=== PATIENT | female | born 1945 | race Caucasian/White ===

== ENCOUNTER 2019-08-10 14:34 | Emergency (ER) | payer BC, MEDICARE, OTHER ==
[~2019-08-10] VITALS: Ht 167.6 cm; Wt 84.4 kg
[~2019-08-10 14:34] MED LIST: Z.0.ACYCLOVIR400 MG PO; Z.0.CRESTOR5 MG; Z.0.TOPROL XL50 MG; Z.0.ZOLOFT50 MG
--- OUTSIDE RECORDS SUMMARY | 2019-08-10 14:38 | XMS REPORT | Summary of Care ---
Author Author [facility] Organization [facility] Address Unknown Phone Unavailable Care Team Providers Care Public Address Systems Mechanic Name Role Phone Willard Mixon MD PCP Reason for Visit * Reason Comments Eye Problem Encounter Details Care Team Description Date Type Department Maykel Dey MD [address] [place] [address] Eye Problem 07/22/2019 Office Visit [facility] Ophthalmology [address] [place] [phone] Allergies Comments Active Allergy Reactions Severity Noted Date Redness and itchy Brimonidine High 06/21/2015 Tartrate-Timolol Rash Sulfa Antibiotics 11/17/2015 documented as of this encounter (statuses as of 07/22/2019) Medications End Date Status Medication Sig Dispensed Refills Start Date Active sertraline (ZOLOFT) 50 MG Take 50 mg by 0 tablet mouth daily. Active rosuvastatin (CRESTOR) 10 Take 10 mg by 0 MG tablet mouth daily. Active metoprolol (TOPROL XL) Take 100 mg 0 100 MG XL tablet by mouth daily. Active Melatonin 1 MG TABS Take by 0 mouth. Active Fexofenadine HCl (MIS Take by 0 ALLERGY OR) mouth. Active Ascorbic Acid (VITAMIN C) Take 1,000 mg 0 1000 MG TABS by mouth. Active B Complex Vitamins Take 1 tablet 0 (VITAMIN-B COMPLEX) TABS by mouth. Active Biotin 1000 MCG TABS Take 1,000 0 mcg by mouth. Active calcium-vitamin D Take 1 tablet 0 (CALCIUM 500/D) 500-200 by mouth. MG-UNIT per tablet Active timolol maleate Place 1 Drop 30 mL 3 10/02/201 (TIMOPTIC) 0.5 % into the left 8 ophthalmic solution eye two times daily. Active acyclovir (ZOVIRAX) 400 TAKE 1 TAB BY 270 Tab 3 MG tablet MOUTH 3 TIMES 9 DAILY. Active LOTEMAX 0.5 % ophthalmic INSTILL 1 15 mL 3 suspension DROP INTO THE 9 LEFT EYE FOUR TIMES DAILY. Active doxycycline (VIBRAMYCIN) Take 1 Cap by 30 Cap 0 50 MG capsule mouth two 9 times daily. 07/22/[address] 0.25 1 Tube 1 (LOTEMAX) 0.5 % Inches into 8 ophthalmic ointment the left eye at bedtime. 07/22/2019 Discontinued fluticasone (FLONASE) 50 Si spray 16 g 1 MCG/ACT nasal spray left nose 2 8 times a day 07/22/2019 Discontinued Ganciclovir (ZIRGAN) 0.15 Apply 1 Inch 1 Tube 3 % GEL to eye 5 8 times daily. 07/22/2019 Discontinued dorzolamide-timolol 1 Drop. 0 (COSOPT) 22.3-6.8 MG/ML ophthalmic solution 07/22/2019 Discontinued clindamycin (CLEOCIN) 150 Take 1 Cap by 21 Cap 0 MG capsule mouth 3 times 8 daily. 07/22/2019 Discontinued bepotastine (BEPREVE) 1.5 Place 1 Drop 10 mL 12 % ophthalmic solution into both 8 eyes 2 times daily as needed (itching / allergy). 07/22/2019 Discontinued moxifloxacin (VIGAMOX) Place 1 Drop 1 Bottle 0 0.5 % ophthalmic solution into the 9 right eye four times daily. 07/22/2019 Discontinued PAZEO 0.7 % SOLN Place 1 Drop 1 Bottle 6 into both 9 eyes daily as needed for Other (itching). 07/22/2019 Discontinued gentamicin (GARAMYCIN) Place 1 Drop 5 mL 3 0.3 % ophthalmic solution into the left 9 eye four times daily. 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 documented as of this encounter Last Filed Vital Signs Not on filedocumented in this encounter Progress Notes * Maykel Dey MD - 07/22/2019 1:00 PM CDT Exam: 1-2+ eyelid erythema. 3+ MGD of ARLENE and LLL. No chalazia 1+ conj injection. K PKP graft clear OS No reflux w/ NL sac compression. No purulence seen on conj. Assessment: MGD OS Plan: wc lotemax lorelei to eyelids qHS Doxy 50 bid x 2 weeks. F/u 1 mo. documented in this encounter Plan of Treatment Care Team Description Date Type Specialty Marina Trinidad, OD [address] [place] [address] [phone] 07/29/2019 Office Visit Ophthalmology Health Maintenance Due Date Last Done Comments COLON CANCER SCREENIN1947 COLONOSCOPY MAMMOGRAM ANNUAL 1945 MEDICARE AWV 1945 TETANUS SHOT (ADULT) 1962 HEPATITIS C SCREENING 1965 FALL SCREEN 2012 PNEUMOVAX >=65 (PPSV23) 2012 PREVNAR >=65 (PCV13) 2012 FLU VACCINE > 6 MONTHS 06/04/2019 OSTEOPOROSIS SCREENING Completed 08/05/2017, 06/18/2017, 08/03/2016 documented as of this encounter Implants Device Identifier Shelf Expiration Date Model / Serial / Lot Implanted Type Area Manufactur er 07/01/2012 / 12-0644-100 / Cornea Tissue - [id number] Left: Cornea Lions Eye Implanted: Qty: 1 on 06/24/2012 at [facility] [place] [facility] [place] 01/22/2018 23.5 / [id number] / [id number] - [id number] Left: Eye CHERYL Implanted: Qty: 1 on 11/24/2013 by Genai Rivers MD at [facility] [place] documented as of this encounter Results Not on filedocumented in this encounter Visit Diagnoses Diagnosis 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
--- OUTSIDE RECORDS SUMMARY | 2019-08-10 14:38 | XMS REPORT | Summary of Care ---
Author Author [facility] Organization [facility] Address Unknown Phone Unavailable Care Team Providers Care Medical Technologist Name Role Phone Willard Mixon MD PCP Reason for Visit * Reason Comments Eye Problem Encounter Details Care Team Description Date Type Department Genia Rivers MD [address] [place] [address] Eye Problem 06/15/2019 Office Visit Department of Ophthalmology [address] [place] [phone] Allergies Comments Active Allergy Reactions Severity Noted Date Redness and itchy Brimonidine High 06/21/2015 Tartrate-Timolol Rash Sulfa Antibiotics 11/17/2015 documented as of this encounter (statuses as of 06/15/2019) Medications End Date Status Medication Sig Dispensed [...] Take by 0 ALLERGY OR) mouth. Active Loteprednol Etabonate Place 0.25 1 Tube 1 (LOTEMAX) 0.5 % Inches into 8 ophthalmic ointment the left eye at bedtime. Active fluticasone (FLONASE) 50 Si spray 16 g 1 MCG/ACT nasal spray left nose 2 8 times a day Active Ganciclovir (ZIRGAN) 0.15 Apply 1 Inch 1 Tube 3 % GEL to eye 5 8 times daily. Active Ascorbic Acid (VITAMIN C) Take 1,000 mg 0 1000 MG TABS by mouth. Active B Complex Vitamins Take 1 tablet 0 (VITAMIN-B COMPLEX) TABS by mouth. Active Biotin 1000 MCG TABS Take 1,000 0 mcg by mouth. Active calcium-vitamin D Take 1 tablet 0 (CALCIUM 500/D) 500-200 by mouth. MG-UNIT per tablet Active dorzolamide-timolol 1 Drop. 0 (COSOPT) 22.3-6.8 MG/ML ophthalmic solution Active clindamycin (CLEOCIN) 150 Take 1 Cap by 21 Cap 0 MG capsule mouth 3 times 8 daily. Active timolol maleate Place 1 Drop 30 mL 3 (TIMOPTIC) 0.5 % into the left 8 ophthalmic solution eye two times daily. Active bepotastine (BEPREVE) 1.5 Place 1 Drop 10 mL 12 % ophthalmic solution into both 8 eyes 2 times daily as needed (itching / allergy). Active moxifloxacin (VIGAMOX) Place 1 Drop 1 Bottle 0 0.5 % ophthalmic solution into the 9 right eye four times daily. Active PAZEO 0.7 % SOLN Place 1 Drop 1 Bottle 6 into both 9 eyes daily as needed for Other (itching). Active acyclovir (ZOVIRAX) 400 TAKE 1 TAB BY 270 Tab 3 MG tablet MOUTH 3 TIMES 9 DAILY. Active LOTEMAX 0.5 % ophthalmic INSTILL 1 15 mL 3 suspension DROP INTO THE 9 LEFT EYE FOUR TIMES DAILY. 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 documented as of this encounter (statuses as of 06/15/2019) Social History Date Tobacco Use Types Packs/Day [...] filedocumented in this encounter Progress Notes * Genia Rivers MD - 06/15/2019 4:15 PM CDT Minor trauma OS with sl loose epithelium OS No HSV activity No stromal infiltrate Plan: Add gentamicin TID Return in a few days documented in this encounter Plan of Treatment Care Team Description Date Type Specialty Genia Rivers MD [address] [place] [address] [phone] 07/22/2019 Office Visit Ophthalmology Health Maintenance Due Date [...] 07/01/2012 / 12-0644-100 / Cornea Tissue - [id number] Left: Cornea Lions Eye Implanted: Qty: 1 on 06/24/2012 at [facility] 01/22/2018 23.5 / [id number] / [id number] - [id number] Left: Eye CHERYL Implanted: Qty: 1 on 11/24/2013 by Genia Rivers MD at [facility] documented as of this encounter Results Not on filedocumented in this encounter Visit Diagnoses Diagnosis Keratitis - Primary Unspecified keratitis documented in this encounter Insurance Type Payer Benefit Subscriber ID Effective Phone Address Plan / Dates Group Medicare [employer] TRS-CARE xxxxxxxxx 2016-P [address] resent [id number] [place] [address] LUNA alejandre (Home) [place] [address] documented as of this encounter
--- OUTSIDE RECORDS SUMMARY | 2019-08-10 14:38 | XMS REPORT | Summary of Care ---
Author Author [facility] Organization [facility] Address Unknown Phone Unavailable Care Team Providers Care Magnetic Tester Name Role Phone Willard Mixon MD PCP Reason for Visit * Reason Comments Blurred Vision Encounter Details Care Team Description Date Type Department Genia Rivers MD [address] [place] [address] Blurred Vision 07/08/2019 Office Visit [facility] Ophthalmology [address] [place] [phone] Allergies Comments Active Allergy Reactions Severity Noted Date Redness and itchy Brimonidine High 06/21/2015 Tartrate-Timolol Rash Sulfa Antibiotics 11/17/2015 documented as of this encounter (statuses as of 07/08/2019) Medications End Date Status Medication Sig Dispensed [...] 9 LEFT EYE FOUR TIMES DAILY. Active gentamicin (GARAMYCIN) Place 1 Drop 5 mL 3 0.3 % ophthalmic solution into the left 9 eye four times daily. 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 documented as of this encounter (statuses as of 07/08/2019) Social History Date Tobacco Use Types Packs/Day [...] Progress Notes * Genia Rivers MD - 07/08/2019 8:15 AM CDT MGD OS>>OD WC 2 minutes HS Same meds After 2 weeks (when she is done taking care of grand children) taper ACV and lot emax by one drop documented in this encounter Plan of Treatment Care Team Description Date Type Specialty Genia Rivers MD [address] [place] [address] [phone] 07/22/2019 Office Visit Ophthalmology Marina Trinidad, ZACK [address] [place] [address] [phone] 07/29/2019 Office Visit Ophthalmology Health Maintenance Due [...] 07/01/2012 / 12-0644-100 / Cornea Tissue - [id number] Left: Cornea Lions Eye Implanted: Qty: 1 on 06/24/2012 at [facility] 01/22/2018 23.5 / [id number] / Sn60wf - [id number] Left: Eye CHERYL Implanted: Qty: 1 on 11/24/2013 by Genia Rivers MD at [facility] [place] documented as of this encounter Results Not on filedocumented in this encounter Visit Diagnoses Diagnosis Post corneal transplant - Primary Cornea replaced by transplant documented in this encounter Insurance Type Payer Benefit Subscriber ID Effective Phone Address Plan / Dates Group Medicare [employer] TRS-CARE xxxxxxxxx 2016-P [address] resent [address] [place] [address] documented as of this encounter
--- OUTSIDE RECORDS SUMMARY | 2019-08-10 14:38 | XMS REPORT | Summary of Care ---
Author Author [facility] Organization [facility] Address Unknown Phone Unavailable Care Team Providers Care Vacuum Spindle Sander Name Role Phone Willard Mixon MD PCP Reason for Visit * Reason Comments Eye Irritation Encounter Details Care Team Description Date Type Department Genia Rivers MD 1974 [place], [place] [id number] Eye Irritation 06/17/2019 Office Visit Department of Ophthalmology [address] [place] [phone] Allergies Comments Active Allergy Reactions Severity Noted Date Redness and itchy Brimonidine High 06/21/2015 Tartrate-Timolol Rash Sulfa Antibiotics 11/17/2015 documented as of this encounter (statuses as of 06/17/2019) Medications End Date Status Medication Sig Dispensed [...] gentamicin (GARAMYCIN) Place 1 Drop 5 mL 2 0.3 % ophthalmic solution into the left 9 eye 3 times daily. 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 documented as of this encounter (statuses as of 06/17/2019) Social History Date Tobacco Use Types Packs/Day [...] Progress Notes * Genia Rivers MD - 06/17/2019 8:30 AM CDT Doing well epith is not adherent Plan: Same meds for the weekend, On Saturday DC gentamicin and reduce lotemax and ACV to usual dose BID documented in this encounter Plan of Treatment Care Team Description Date Type Specialty Genia Rivers MD [address] [place] [address] [phone] 07/22/2019 Office Visit Ophthalmology Health Maintenance Due [...] 07/01/2012 / 12-0644-100 / Cornea Tissue - [id number] Left: Cornea Lions Eye Implanted: Qty: 1 on 06/24/2012 at [facility] [place] [facility] 01/22/2018 23.5 / [id number] / [id number] - [id number] Left: Eye CHERYL Implanted: Qty: 1 on 11/24/2013 by Genia Rivers MD at [facility] documented as of this encounter Results Not on filedocumented in this encounter Visit Diagnoses Diagnosis Keratitis - Primary Unspecified keratitis documented in this encounter Insurance Type Payer Benefit Subscriber ID Effective Phone Address Plan / Dates Group Medicare [employer] TRS-CARE xxxxxxxxx 2016-P [address] resent [address] [place] [address] documented as of this encounter
--- OUTSIDE RECORDS SUMMARY | 2019-08-10 14:38 | XMS REPORT | Summary of Care ---
Author Author [facility] Organization [facility] Address Unknown Phone Unavailable Care Team Providers Care Pump Rebuilder Name Role Phone Willard Mixon MD PCP Reason for Visit * Reason Comments Eye Problem Encounter Details Care Team Description Date Type Department Genia Rivers MD [address] [place] [address] Eye Problem 06/29/2019 Office Visit [facility] Ophthalmology [address] [place] [phone] Allergies Comments Active Allergy Reactions Severity Noted Date Redness and itchy Brimonidine High 06/21/2015 Tartrate-Timolol Rash Sulfa Antibiotics 11/17/2015 documented as of this encounter (statuses as of 06/29/2019) Medications End Date Status Medication Sig Dispensed [...] 0.15 Apply 1 Inch 1 Tube 3 03/24/ % GEL to eye 5 8 times [...] as of this encounter (statuses as of 06/29/2019) Active Problems Problem Noted Date Angular blepharoconjunctivitis of left eye 08/15/2016 Blepharitis of both eyes 05/29/2016 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 Post-operative state 12/14/2015 Nasolacrimal duct obstruction 11/01/2015 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 Pseudophakia of left eye 04/08/2015 Incipient senile cataract 04/08/2015 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 documented as of this encounter (statuses as of 06/29/2019) Social History Date Tobacco Use Types Packs/Day [...] Signs Not on filedocumented in this encounter Patient Instructions * Patient Instructions* Genia Rivers MD - 06/29/2019 4:00 PM CDT Acyclovir 3 x per day Gentamicin once a day lotemax 3 x per day documented in this encounter Progress Notes * Genia Rivers MD - 06/29/2019 4:00 PM CDT Possible ADV with persistent inflammation Could still be shedding virus Plan: Increase lotemax to tid for a few weeks documented in this encounter Plan of Treatment Care Team Description Date Type Specialty Genia Rivers MD [address] [place] [address] [phone] 07/22/2019 Office Visit Ophthalmology Health Maintenance Due [...] 07/01/2012 / 12-0644-100 / Cornea Tissue - [id number] Left: Cornea Lions Eye Implanted: Qty: 1 on 06/24/2012 at [facility] 01/22/2018 23.5 / [id number] / [id number] - [id number] Left: Eye CHERYL Implanted: Qty: 1 on 11/24/2013 by Genia Rivers MD at [facility] [place] documented as of this encounter Results Not on filedocumented in this encounter Visit Diagnoses Diagnosis Conjunctivitis due to adenovirus, left eye - Primary documented in this encounter Insurance Type Payer Benefit Subscriber ID Effective Phone Address Plan / Dates Group Medicare [employer] TRS-CARE xxxxxxxxx 2016-P [address] resent [address] [place] [address] documented as of this encounter
--- OUTSIDE RECORDS SUMMARY | 2019-08-10 14:38 | XMS REPORT | Summary of Care ---
Author Author [facility] Organization [facility] Address Unknown Phone Unavailable Care Team Providers Care Motorcycle Maker Name Role Phone Willard Mixon MD PCP Reason for Visit * Reason Comments Eye Pain Encounter Details Care Team Description Date Type Department Genia Rivers MD [address] [place] [address] Eye Pain 06/22/2019 Office Visit [facility] Ophthalmology [address] [place] [phone] Allergies Comments Active Allergy Reactions Severity Noted Date Redness and itchy Brimonidine High 06/21/2015 Tartrate-Timolol Rash Sulfa Antibiotics 11/17/2015 documented as of this encounter (statuses as of 06/22/2019) Medications End Date Status Medication Sig Dispensed [...] as of this encounter (statuses as of 06/22/2019) Active Problems Problem Noted Date Angular blepharoconjunctivitis of left eye 08/15/2016 Blepharitis of both eyes 05/29/2016 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 Viral conjunctitivits? Improving now Plan: Continue current therapy for one week then taper by one drop or one pill every week until back to baseline documented in this encounter Plan of Treatment Care Team Description Date Type Specialty Genia Rivers MD [address] [place] [address] [phone] 07/22/2019 Office Visit Ophthalmology Health Maintenance Due [...] 07/01/2012 / 12-0644-100 / Cornea Tissue - [id number] Left: Cornea Lions Eye Implanted: Qty: 1 on 06/24/2012 at [facility] 01/22/2018 23.5 / [id number] / [id number] - [id number] Left: Eye CHERYL Implanted: Qty: 1 on 11/24/2013 by Genia Rivers MD at [facility] [place] documented as of this encounter Results Not on filedocumented in this encounter Visit Diagnoses Diagnosis Acute viral conjunctivitis of left eye - Primary documented in this encounter Insurance Type Payer Benefit Subscriber ID Effective Phone Address Plan / Dates Group Medicare [employer] TRS-[place] xxxxxxxxx 2016-P [address] resent [address] [place] [address] documented as of this encounter
[2019-08-10] MEDS ORDERED: IBUPROFEN 600 MG TAB PO STA (15:18)
[2019-08-10] MEDS ORDERED: IBUPROFEN 200 MG TAB ONE (15:36)
[2019-08-10] MEDS ORDERED: ACETAMINOPHEN 325 MG TAB PO ONE (15:45)
[2019-08-10] MEDS ORDERED: ACETAMINOPHEN 325 MG TAB ONE (15:49)
--- NOTE | 2019-08-10 17:28 | Diagnostic Imaging Report ---
History: Right periauricular and facial pain x1 day. No trauma. Comparison studies: None Technique: Axial images were obtained through the facial region. Coronal and sagittal images reconstructed from the axial data. Dose modulation, iterative reconstruction, and/or weight based adjustment of the mA/kV was utilized to reduce the radiation dose to as low as reasonably achievable. Radiation dose: Total DLP: 1128 mGy*cm. Estimated effective dose: DLP x 0.015 Intravenous contrast: 100 cc of Omnipaque 300. Findings: Evaluation of the soft tissues are limited in the absence of IV contrast. In spite of limitations: Soft tissues: Relatively circumscribed 1.9 x 1.3 x 1.0 cm (SI x AP x TV) mass at the left medial canthus which extends to the left nasolacrimal duct. The left nasolacrimal duct is opacified and mildly expanded. No periauricular or parotid mass identified. Bones: No fractures. No lytic or blastic lesions. Degenerative changes at the right temporomandibular joint with small osteophyte formation along the right mandibular condyle. Orbits: Incidental left lens replacement. See soft tissues, as above. Paranasal sinuses: Scattered nonspecific inflammatory mucosal thickening in the bilateral maxillary sinuses and bilateral middle ethmoid air cells. The remaining sinuses are clear. The bilateral ostiomeatal units, frontoethmoidal recesses and sphenoethmoidal recesses are patent. Bony defects along the medial manjarrez of the bilateral maxillary sinuses may be congenital or be related to prior medial antrostomies. Findings could be correlated for prior sinonasal surgery. Nasal cavity: Mild nonspecific reactive inferior nasal turbinate hypertrophy. Nasal septum is slightly deviated to the patient's right. Dentition: No periapical lucencies. Middle ear and mastoids: Minimal effusion at the right mastoid tip. Bilateral middle ear and remaining mastoid cavities are clear. Included cervical spine: Mild multilevel cervical disc degeneration and multilevel facet arthrosis. IMPRESSION: 1. No periauricular or parotid mass identified. 2. Mild nonspecific mucosal thickening in the bilateral maxillary sinuses and ethmoid air cells. 3. Indeterminate left medial canthal mass which extends to the left nasolacrimal duct which is opacified and mildly widened. Differential includes neoplasm or dacryocystocele. Recommend ENT consultation. Maxillofacial CT or MRI with IV contrast may also further evaluate. Findings and recommendations were discussed with Dr. Dennison at approximately 5:15 PM on 08/10/2019. Signed by: Dr. Jovi Vaughn M.D. on 08/10/2019 5:25 PM
[2019-08-10 17:46] VITALS: BP 157/72
== END 2019-08-10 17:53 | disposition home or self-care (01) ==
LOC: FSED 14:34
DX: R51 Headache (principal); B02.9 Zoster without complications; I10 Essential (primary) hypertension
CPT/HCPCS: 70486; 80053; 85025; 99284

== ENCOUNTER 2021-03-22 15:50 | Outpatient (RCR) | payer MEDICARE | END 2021-04-03 | LOC: PT 15:50 | PROVIDERS: ATTEND Orthopaedic Surgery ==

== ENCOUNTER 2021-11-16 12:58 | Outpatient (RCR) | payer MEDICARE | END 2021-12-04 | LOC: PT 12:58 | PROVIDERS: ATTEND Otolaryngology | DX: H81.10 Benign paroxysmal vertigo, unspecified ear (principal) ==

== ENCOUNTER 2022-01-15 11:07 | Emergency (ER) | payer MEDICARE ==
[~2022-01-15] VITALS: Ht 167.6 cm; Wt 84.4 kg
[2022-01-15] MEDS ORDERED: ACETAMINOPHEN 325 MG TAB PO ONE (13:15)
[2022-01-15] MEDS ORDERED: ULTRAM50 MG PO (14:35)
[2022-01-15] MEDS ORDERED: COLACE100 MG PO (14:35)
== END 2022-01-15 15:00 | disposition home or self-care (01) ==
LOC: ER 11:15
DX: S42.291A Other displaced fracture of upper end of right humerus, initial encounter for closed fracture (principal); S09.90XA Unspecified injury of head, initial encounter; S99.912A Unspecified injury of left ankle, initial encounter; W17.89XA Other fall from one level to another, initial encounter; Y93.A1 Activity, exercise machines primarily for cardiorespiratory conditioning; Y92.098 Other place in other non-institutional residence as the place of occurrence of the external cause; I10 Essential (primary) hypertension; E78.5 Hyperlipidemia, unspecified; F41.9 Anxiety disorder, unspecified; Z94.7 Corneal transplant status
CPT/HCPCS: 70450; 72125; 99284

== ENCOUNTER 2022-09-13 19:09 | Emergency (ER) | payer MEDICARE, OTHER ==
[~2022-09-13] VITALS: Ht 167.6 cm; Wt 84.4 kg
[~2022-09-13 19:09] MED LIST changes: +COLACE100 MG PO; +ULTRAM50 MG PO
== END 2022-09-13 22:44 | disposition home or self-care (01) ==
LOC: ER 19:13
DX: S00.83XA Contusion of other part of head, initial encounter (principal); M25.552 Pain in left hip; W01.198A Fall on same level from slipping, tripping and stumbling with subsequent striking against other object, initial encounter; Y93.01 Activity, walking, marching and hiking; Y92.89 Other specified places as the place of occurrence of the external cause; I10 Essential (primary) hypertension; E78.5 Hyperlipidemia, unspecified; F41.9 Anxiety disorder, unspecified
CPT/HCPCS: 70450; 71045; 72125; 99283

== ENCOUNTER 2024-10-13 14:07 | Emergency (ER) | payer MEDICARE ==
[~2024-10-13] VITALS: Ht 167.6 cm; Wt 84.4 kg
[2024-10-13] MEDS: MAGNESIUM/ALUMINUM/SIMETHICONE 30 ML UDC PO ONE (15:19)
[2024-10-13 16:29] LABS: BASOPHILS # (AUTO) 0.1 (0.0-0.1); BASOPHILS % 0.8 % (0.0-1.0); EOSINOPHILS # (AUTO) 0.1 (0.0-0.4); EOSINOPHILS % 1.5 % (0.0-6.0); HEMATOCRIT 41.6 % (34.2-44.1); HEMOGLOBIN 13.6 g/dL (12.0-16.0); LYMPHOCYTES # (AUTO) 1.3 (1.0-3.2); LYMPHOCYTES % 21.9 % (18.0-39.1); MEAN CORPUSCULAR HEMOGLOBIN 31.5 pg (28-32); MEAN CORPUSCULAR HGB CONC 32.7 g/dL (31-35); MEAN CORPUSCULAR VOLUME 96.3 fL (81-99); MONOCYTES # (AUTO) 0.5 (0.2-0.8); MONOCYTES % 8.1 % (4.4-11.3); NEUTROPHILS % 67.4 % (38.7-80.0); PLATELET COUNT 167 x10e3/uL (140-360); RED BLOOD COUNT 4.32 x10e6/uL (3.6-5.1); RED CELL DISTRIBUTION WIDTH 13.2 % (11.7-14.4)
[2024-10-13 16:41] LABS: INR 0.93; PARTIAL THROMBOPLASTIN TIME 24.7 seconds (23.8-35.5)
[2024-10-13 16:55] LABS: ALANINE AMINOTRANSFERASE 19 IU/L (0-55); ALBUMIN 3.9 g/dL (3.5-5.0); ALBUMIN/GLOBULIN RATIO 1.3 (0.8-2.0); ALKALINE PHOSPHATASE 73 IU/L (40-150); ANION GAP 14.4 mmol/L (8-16); BILIRUBIN,TOTAL 0.6 mg/dL (0.2-1.2); BLOOD UREA NITROGEN 22 mg/dL (7-26); BUN/CREATININE RATIO 26 (6-25); CALCIUM 9.9 mg/dL (8.4-10.2); CARBON DIOXIDE 25 mmol/L (22-29); CHLORIDE 105 mmol/L (98-107); CREATINE KINASE 64 IU/L (29-168); CREATININE, SERUM 0.86 mg/dL (0.57-1.11); EST GLOMERULAR FILTRATION RATE 70 ML/MIN (>=60); GLUCOSE 123 mg/dL (74-118); POTASSIUM 4.4 mmol/L (3.5-5.1); SODIUM 140 mmol/L (136-145); TOTAL PROTEIN 6.8 g/dL (6.5-8.1)
[2024-10-13 17:02] LABS: TROPONIN I < 0.001 ng/mL (0-0.300)
[2024-10-13 17:12] VITALS: PULSE 56; RESP 17; TEMP 97.6; O2SAT 100
== END 2024-10-13 17:26 | disposition home or self-care (01) ==
LOC: ER 15:55
DX: S00.83XA Contusion of other part of head, initial encounter (principal); R07.89 Other chest pain; W01.0XXA Fall on same level from slipping, tripping and stumbling without subsequent striking against object, initial encounter; Y93.01 Activity, walking, marching and hiking; Y92.89 Other specified places as the place of occurrence of the external cause; I10 Essential (primary) hypertension; E78.5 Hyperlipidemia, unspecified; F41.9 Anxiety disorder, unspecified; F32.A Depression, unspecified; Z94.7 Corneal transplant status; R94.31 Abnormal electrocardiogram [ECG] [EKG]
CPT/HCPCS: 36415; 70450; 71045; 72125; 80053; 82550; 84484; 85025; 85610; 85730; 93005; 99284